=== PATIENT | male | born 1980 | race Two or more races ===

== ENCOUNTER 2024-12-08 07:25 | Day surgery (SDC) | payer OTHER ==
[2024-12-08] MEDS ORDERED: Sodium Chloride 0.9% 10 ML Syringe FLUSH PRN (07:39)
[2024-12-08] MEDS ORDERED: Sodium Chloride 0.9% 20 ML SDV IV PRN (07:39)
[2024-12-08] MEDS ORDERED: Sodium Chloride 0.9% 2.5 ML Syringe FLUSH PRN (07:39)
[2024-12-08] MEDS: Alum Hydrox/Mag Hydrox/Simeth 15 ML, Lidocaine 2% 5 ML PO ONE (07:58)
[2024-12-08] MEDS: Famotidine 20 MG Tab PO ONE (07:59)
[2024-12-08] MEDS: Sodium Chloride 0.9% 1,000 ML IV ONE (07:59)
[2024-12-08 08:19] LABS: BASOPHILS ABSOLUTE AUTO 0.06 K/uL (0.00-0.20); BASOPHILS PERCENT AUTO 0.5 % (0.0-1.0); EOSINOPHILS PERCENT AUTO 1.8 % (0.0-6.0); HEMATOCRIT 45.8 % (42.0-52.0); HEMOGLOBIN 15.6 g/dL (14.0-18.0); IMMATURE GRAN ABSOLUTE AUTO 0.03 K/uL (0.00-0.05); IMMATURE GRAN PERCENT AUTO 0.3 % (0.0-0.4); LYMPHOCYTES ABSOLUTE AUTO 1.72 K/uL (1.00-4.80); LYMPHOCYTES PERCENT AUTO 15.1 % (24.0-44.0); MEAN CORPUSCULAR HEMOGLOBIN 29.5 pg (28.0-32.0); MEAN CORPUSCULAR HGB CONC 34.1 g/dL (32.0-36.0); MEAN CORPUSCULAR VOLUME 86.7 fL (83.0-99.0); MEAN PLATELET VOLUME 9.3 fL (9.4-12.4); MONOCYTES ABSOLUTE AUTO 0.82 K/uL (0.00-0.80); MONOCYTES PERCENT AUTO 7.2 % (0.0-8.0); NEUTROPHILS ABSOLUTE AUTO 8.59 K/uL (1.80-7.70); NEUTROPHILS PERCENT AUTO 75.1 % (41.0-71.0); PLATELET COUNT,PLT 313 K/uL (150-400); RED BLOOD CELL COUNT 5.28 M/uL (4.52-5.90); WHITE BLOOD CELL COUNT,WBC 11.42 K/uL (3.9-11.3)
[2024-12-08] MEDS: Iopamidol 755 MG/ML 500 ML Multipack Bottle IVPUSH STA (08:29)
[2024-12-08 08:42] LABS: A/G RATIO 1.3 (0.9-1.6); BILIRUBIN TOTAL 1.4 mg/dL (0.2-1.0); CALCIUM 8.6 mg/dL (8.5-10.1); CARBON DIOXIDE,CO2 24.6 mmol/L (21.0-32.0); CREATININE 1.2 mg/dL (0.8-1.3); EST CRCL DRUG DOSING (CG) 77.74 mL/min; PROTEIN TOTAL,TP 7.1 g/dL (6.4-8.2)
[2024-12-08 09:42] LABS: APPEARANCE,URINE CLEAR; BILIRUBIN,URINE NEGATIVE (NEGATIVE); COLOR,URINE YELLOW; GLUCOSE,URINE NEGATIVE (NEGATIVE); KETONES,URINE NEGATIVE (NEGATIVE); LEUKOCYTE ESTERASE,URINE NEGATIVE (NEGATIVE); NITRITE,URINE NEGATIVE (NEGATIVE); OCCULT BLOOD,URINE NEGATIVE (NEGATIVE); PROTEIN,URINE NEGATIVE (NEGATIVE); UROBILINOGEN,URINE 0.2 EU/dL (<2.0)
[2024-12-08] MEDS: Piperacillin/Tazobactam 4.5 GM in Sodium Chloride 0.9% 100 ML IV ONE (10:09)
[2024-12-08] MEDS ORDERED: Bupivacaine 0.5% 30 ML SDV ONE (13:02)
[2024-12-08] MEDS ORDERED: Albuterol 0.083% 2.5 MG/3 ML Neb Soln NEB PRN (13:04)
[2024-12-08] MEDS ORDERED: Ondansetron 4 MG/2 ML SDV IVPUSH PRN ×2 (13:04→16:30)
[2024-12-08] MEDS ORDERED: Phenylephrine HCl In 0.9% NaCl 1 MG/10 ML Syringe IVPUSH PRN (13:04)
[2024-12-08] MEDS ORDERED: Metoclopramide 10 MG/2 ML SDV IVPUSH PRN (13:04)
[2024-12-08] MEDS ORDERED: Naloxone 0.4 MG/ML SDV IVPUSH PRN ×2 (13:04→16:30)
[2024-12-08] MEDS ORDERED: Morphine 2 MG/ML SYRINGE IVPUSH PRN (13:04)
[2024-12-08] MEDS ORDERED: HYDROmorphone 1 MG/ML Syringe IVPUSH PRN (13:04)
[2024-12-08] MEDS ORDERED: fentaNYL 50 MCG/ML SDV IVPUSH PRN (13:04)
[2024-12-08] MEDS ORDERED: Ropivacaine 0.5% 5 MG/ML 30 ML SDV ONE (13:31)
[2024-12-08] MEDS ORDERED: Propofol 200 MG/20 ML SDV ONE (13:35)
[2024-12-08] MEDS ORDERED: Rocuronium Bromide 50 MG/5 ML Syringe ONE ×2 (13:36→14:21)
[2024-12-08] MEDS ORDERED: Lidocaine 1% 5 ML VIAL ONE (13:36)
[2024-12-08] MEDS ORDERED: Midazolam 1 MG/ML 2 ML SDV ONE (13:36)
[2024-12-08] MEDS ORDERED: fentaNYL 100 MCG/2 ML SDV ONE (13:36)
[2024-12-08] MEDS ORDERED: Ondansetron 4 MG/2 ML SDV ONE (13:58)
[2024-12-08] MEDS ORDERED: Ketorolac 30 MG/ML SDV ONE (14:02)
[2024-12-08] MEDS ORDERED: Sugammadex Sodium 200 MG/2 ML VIAL IV ONE (14:02)
[2024-12-08] MEDS ORDERED: Sodium Chloride 0.9% 20 ML ONE (14:03)
[2024-12-08] MEDS ORDERED: dexmedeTOMIDine HCl 200 MCG/2 ML SDV ONE (14:03)
[2024-12-08] MEDS ORDERED: Glycopyrrolate 0.2 MG/ML SDV ONE (14:21)
[2024-12-08] MEDS ORDERED: Phenylephrine 1% 10 MG/ML SDV ONE (14:21)
[2024-12-08] MEDS ORDERED: Acetaminophen 325 MG Tab PO PRN (16:30)
[2024-12-08] MEDS: Piperacillin/Tazobactam 4.5 GM in Sodium Chloride 0.9% 100 ML IV SCH (18:08)
[2024-12-08] MEDS: Sodium Chloride 0.9% 1,000 ML IV SCH (18:08)
[2024-12-08] MEDS: Acetaminophen/HYDROcodone 325-5 MG Tab PO PRN (19:47)
[2024-12-09] MEDS: HYDROmorphone 0.5 MG/0.5 ML Syringe IVPUSH PRN (01:06)
== END 2024-12-09 14:00 | disposition home or self-care (01) ==
LOC: MW.ED 07:25 → MW.SDS 16:59 → MW.MS 16:59 → MW.SDS 12-09 14:00
PROVIDERS: ATTEND Surgery
DX: K80.12 Calculus of gallbladder with acute and chronic cholecystitis without obstruction (principal); R74.8 Abnormal levels of other serum enzymes; Z88.8 Allergy status to other drugs, medicaments and biological substances; Z88.0 Allergy status to penicillin; Z87.891 Personal history of nicotine dependence; Z79.899 Other long term (current) drug therapy
CPT/HCPCS: 36415; 47562; 64486; 74177; 80053; 81003; 83690; 84484; 85025; 93005; 96361; 96365; 99285; A9270; J0665; J1596; J1885; J2003; J2250; J2371; J2543; J2704; J2795; J3010; J7030; Q9967; 00790; 93010; J1171; J2405; J3490